=== PATIENT | male | born 1980 | race Caucasian/White ===

== ENCOUNTER 2022-04-11 01:57 | Emergency (ER) | payer OTHER ==
[~2022-04-11] VITALS: Ht 175.3 cm; Wt 113.4 kg
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
--- NOTE | 2022-04-11 02:14 | NUR ---
SPOKE TO IN WAITING ROOM. GAVE HER AN UPDATE
--- NOTE | 2022-04-11 02:18 | NUR ---
SEEN BY MD AT BEDSIDE
--- NOTE | 2022-04-11 02:52 | NUR ---
XRAY AT BEDSIDE.
[2022-04-11] MEDS ORDERED: HYDROCODONE/APAP 10/325MG TABLET ONE (02:59)
[2022-04-11] MEDS ORDERED: HYDROCODONE/APAP 10/325MG TABLET PO ONE (03:00)
[2022-04-11] MEDS ORDERED: NAPR-1009 PO (04:03)
--- NOTE | 2022-04-11 06:02 | NUR ---
IV CANNULA REMOVED
--- NOTE | 2022-04-11 06:02 | NUR ---
Patient discharged to home in stable condition. Written and verbal after care instructions given. Patient verbalizes understanding of instruction.
[2022-04-11 06:03] VITALS: BP 123/81
== END 2022-04-11 06:03 | disposition home or self-care (01) ==
LOC: ER 01:59
DX: S29.012A Strain of muscle and tendon of back wall of thorax, initial encounter (principal); S39.012A Strain of muscle, fascia and tendon of lower back, initial encounter; S46.911A Strain of unspecified muscle, fascia and tendon at shoulder and upper arm level, right arm, initial encounter; F41.9 Anxiety disorder, unspecified; Z79.899 Other long term (current) drug therapy; V49.59XA Passenger injured in collision with other motor vehicles in traffic accident, initial encounter; Y93.89 Activity, other specified; Y92.89 Other specified places as the place of occurrence of the external cause; Y99.8 Other external cause status
CPT/HCPCS: 73030-TC